=== PATIENT | female | born 1935 | race Two or more races ===

== ENCOUNTER 2021-04-29 11:20 | Emergency (ER) | payer OTHER ==
[~2021-04-29] VITALS: Ht 157.5 cm; Wt 77.1 kg
[~2021-04-29 11:20] MED LIST: ADVAIR 2501 DISK W/1 IH; MULTIVITAMIN1 TAB PO; SINGULAIR10 MG PO; ZYRTEC10 MG PO
[2021-04-29] MEDS ORDERED: AMOX-CLAV 875-1 EACH PO (14:01)
== END 2021-04-29 14:04 | disposition home or self-care (01) ==
LOC: ER 11:20
DX: L03.115 Cellulitis of right lower limb (principal); S89.91XA Unspecified injury of right lower leg, initial encounter; X58.XXXA Exposure to other specified factors, initial encounter; Y92.9 Unspecified place or not applicable; B96.1 Klebsiella pneumoniae [K. pneumoniae] as the cause of diseases classified elsewhere; B96.89 Other specified bacterial agents as the cause of diseases classified elsewhere; Z86.39 Personal history of other endocrine, nutritional and metabolic disease

== ENCOUNTER 2021-05-02 10:22 | Outpatient (CLI) | payer OTHER ==
[~2021-05-02 10:22] MED LIST changes: +AMOX-CLAV 875-1 EACH PO
== END 2021-05-02 14:53 | disposition home or self-care (01) ==
LOC: WOUND MED 10:22
PROVIDERS: ATTEND Specialist
DX: E11.622 Type 2 diabetes mellitus with other skin ulcer (principal); L97.911 Non-pressure chronic ulcer of unspecified part of right lower leg limited to breakdown of skin
CPT/HCPCS: 11042; A4930; A6219; A6223; A6251

== ENCOUNTER 2021-05-05 14:23 | Outpatient (CLI) | payer OTHER | END 2021-05-06 13:36 | disposition home or self-care (01) | LOC: WOUND MED 14:23 | PROVIDERS: ATTEND Specialist | DX: E11.622 Type 2 diabetes mellitus with other skin ulcer (principal); L97.911 Non-pressure chronic ulcer of unspecified part of right lower leg limited to breakdown of skin | CPT/HCPCS: 97602; A4930; A6021; A6219; A6223; A6251 ==

== ENCOUNTER 2021-05-09 11:46 | Outpatient (CLI) | payer OTHER | END 2021-05-09 13:45 | disposition home or self-care (01) | LOC: WOUND MED 11:46 → WOUND CARE 11:46 → WOUND MED 13:45 | PROVIDERS: ATTEND Specialist | DX: E11.622 Type 2 diabetes mellitus with other skin ulcer (principal); L97.911 Non-pressure chronic ulcer of unspecified part of right lower leg limited to breakdown of skin | CPT/HCPCS: 11042; A4930; A6219; A6223; A6251 ==